=== PATIENT | female | born 1995 | race Caucasian/White ===

== ENCOUNTER 2017-04-17 07:18 | Inpatient (IN) | payer MEDICAID ==
[2017-05-23] MEDS ORDERED: OXYTOCIN/NORMAL SALINE 20 UNIT/1,000 ML RTUINJ IV PRN ×2 (07:45→14:02)
[2017-05-23] MEDS ORDERED: RINGERS SOLUTION,LACTATED 300 ML IV ONE (07:45)
[2017-05-23] MEDS: DINOPROSTONE 10 MG VAGINAL INSERT.SR PV PRN ×3 (08:18→14:47)
[2017-05-23 08:25] LABS: APPEARANCE,URINE CLOUDY; BILIRUBIN,URINE NEGATIVE (NEGATIVE); COLOR,URINE YELLOW; GLUCOSE, URINE NEGATIVE (NEGATIVE); KETONES,URINE NEGATIVE (NEGATIVE); LEUKOCYTE ESTERASE,URINE MODERATE (NEGATIVE); NITRITE,URINE NEGATIVE (NEGATIVE); PROTEIN,URINE NEGATIVE (NEGATIVE); URINE SPECIFIC GRAVITY 1.009; UROBILINOGEN,URINE NEGATIVE mg/dL (<2.0)
[2017-05-23 08:26] LABS: HEMATOCRIT 35.3 % (36.0-47.0); HEMOGLOBIN 11.3 g/dL (12.0-15.5); MEAN CORPUSCULAR HEMOGLOBIN 25.6 pg (27.0-33.4); MEAN CORPUSCULAR HGB CONC 32.1 g/dL (32.0-36.0); MEAN CORPUSCULAR VOLUME 80 fl (80-97); PLATELET COUNT 201 10^3/uL (150-450); RED BLOOD COUNT 4.42 10^6/uL (3.72-5.28); RED CELL DISTRIBUTION WIDTH 14.2 % (11.5-14.0)
[2017-05-23 08:35] LABS: ADD MANUAL MICROSCOPIC YES
[2017-05-23] MEDS ORDERED: LIDOCAINE 1% INJ-PF (10 MG/ML) 30 ML SDV ONE (08:35)
[2017-05-23] MEDS ORDERED: OXYTOCIN/NORMAL SALINE 20 UNIT/1,000 ML RTUINJ ONE (08:35)
[2017-05-23 08:36] LABS: BACTERIA,URINE TRACE /HPF
[2017-05-23 08:39] LABS: URINE AMPHETAMINES SCREEN NEGATIVE; URINE BARBITURATES SCREEN NEGATIVE; URINE BENZODIAZEPINES SCREEN NEGATIVE; URINE COCAINE SCREEN NEGATIVE; URINE MARIJUANA (THC) SCREEN NEGATIVE; URINE METHADONE SCREEN NEGATIVE; URINE PHENCYCLIDINE SCREEN NEGATIVE
[2017-05-23] MEDS: RINGERS SOLUTION,LACTATED 1,000 ML IV PRN ×2 (08:45→10:09)
[2017-05-23] MEDS ORDERED: FENTANYL CITRATE INJ/PF 100 MCG/2 ML AMPUL ONE (10:30)
[2017-05-23] MEDS ORDERED: PHENYLEPHRINE HCL INJ/PF 10 MG/1 ML SDV ONE (10:31)
[2017-05-23] MEDS ORDERED: FENTANYL/BUPIVACAINE/NS/PF 200 MCG/100 ML RTUINJ EPI ONE (10:31)
[2017-05-23] MEDS ORDERED: BUPIVACAINE HCL 0.25 % INJ/PF (2.5 MG/1 ML) 30 ML VIAL ONE (10:31)
[2017-05-23] MEDS ORDERED: EPHEDRINE SULFATE INJ 50 MG/1 ML AMPULE ONE (10:31)
[2017-05-23 10:51] LABS: CHLAM PCR NOT DETECTED (NOT DETECT); GON PCR NOT DETECTED (NOT DETECT)
[2017-05-23] MEDS ORDERED: MISOPROSTOL 0.2 MG TABLET ONE (12:39)
[2017-05-23] MEDS ORDERED: BENZOCAINE/MENTHOL AEROSOL SPRAY 56 ML TOP PRN (14:02)
[2017-05-23] MEDS ORDERED: DIPH/PERTUSS(ACELL)/TETANUS VAC/PF 0.5 ML SYR (>=10YO) IM PRN (14:02)
[2017-05-23] MEDS ORDERED: DIBUCAINE 1% OINTMENT 28 GM TP PRN (14:02)
[2017-05-23] MEDS ORDERED: ACETAMINOPHEN WITH CODEINE #3 TABLET PO PRN (14:02)
[2017-05-23] MEDS ORDERED: MEASLES,MUMPS&RUBELLA VACC/PF 0.5 ML VIAL SUBCUT PRN (14:02)
[2017-05-23] MEDS ORDERED: ZOLPIDEM TARTRATE 5 MG TABLET PO PRN (14:02)
--- NOTE | 2017-05-23 15:27 | Warning Signs in Babies ---
VOD Warning Signs Datetime Report Generated by [facility]: 05/23/2017 15:26 VOD#[id number] -Warning Signs in Babies: Viewed with Parent(s)/Family (05/23/2017 06:13:Nissa Sanders RN)
--- NOTE | 2017-05-23 16:22 | Admission Physical ---
Datetime Report Generated by CPN: 05/23/2017 16:22 CURRENT ADMISSION Chief Complaint: Scheduled Induction of Labor Indication for Induction: Post Dates Indication for Induction: Term, Intrauterine ; No Active Labor; Induction of Labor Admit Plan: Admit to Unit; Initiate Labor Induction Protocol ALLERGIES Medication Allergies: No Medication Allergies: No Known Allergies (05/23/2017) Latex: No Latex Allergies OBSTETRICAL HISTORY EDC: 05/17/2017 00:00 : 1 Para: 0 Term: 0 : 0 SAB: 0 IAB: 0 Ectopic: 0 Livin Cesareans: 0 VBACs: 0 Multiple Births: 0 Current Procedures: Ultrasound Obstetrical History Comments: G1 - current SEE RECORDS Alcohol: No Marijuana : No Cocaine: No Other Illicit Drugs: No Cigarettes: Former Smoker. [id number] MEDICAL HISTORY Kidney Disease: Yes Medical History Comments: UTI's as child INFECTIOUS HISTORY Chlamydia: Yes PHYSICAL EXAM General: Normal HEENT: Normal Neurologic: Normal Thyroid: Normal Heart: Normal Lungs: Normal Breast: Normal Back: Normal Abdomen: Normal Genitourinary Exam: Normal Extremities: Normal DTRs: Normal Pelvic Type: Adequate Vital Signs: Reviewed; Within Normal Limits VAGINAL EXAM Dilatation: 10 Effacement: 100 Station: 3 MEMBRANES Pooling: Negative Membranes: Ruptured Amniotic Fluid Color: Clear FETUS A EGA: 40.6 Monitoring: External US FHR- Baseline: 125 Variability: Moderate 6-25bpm Accelerations: 15X15 Decelerations: Variable FHR Category: Category II Estimated Weight (gm): 3700 Presentation: Vertex PLANS FOR LABOR AND DELIVERY Labor and Delivery: None Pain Management: Epidural Feeding Preference: Breast Benefit of Breast Feed Discussed: Yes Circumcision: Yes INFORMED CONSENT Signature: with User ID: [email or web address]
[2017-05-23] MEDS: DOCUSATE SODIUM 100 MG CAPSULE PO SCH (17:53)
[2017-05-23] MEDS: FERROUS SULFATE 325 MG TABLET PO SCH (17:53)
[2017-05-23] MEDS: ACETAMINOPHEN WITH CODEINE #3 TABLET PO PRN (18:35)
[2017-05-23] MEDS: IBUPROFEN 800 MG TABLET PO SCH (21:16)
[2017-05-24] MEDS: IBUPROFEN 800 MG TABLET PO SCH ×3 (05:28→22:00)
[2017-05-24 07:55] LABS: HEMATOCRIT 29.7 % (36.0-47.0); HEMOGLOBIN 9.8 g/dL (12.0-15.5); MEAN CORPUSCULAR HEMOGLOBIN 26.4 pg (27.0-33.4); MEAN CORPUSCULAR VOLUME 80 fl (80-97); PLATELET COUNT 172 10^3/uL (150-450); RED BLOOD COUNT 3.72 10^6/uL (3.72-5.28); RED CELL DISTRIBUTION WIDTH 14.3 % (11.5-14.0); WHITE BLOOD COUNT 14.5 10^3/uL (4.0-10.5)
[2017-05-24] MEDS: SENNOSIDES/DOCUSATE 8.6-50 MG 1 EACH TABLET PO SCH (10:33)
[2017-05-24] MEDS: PRENATAL VITAMIN W DHA CAPSULE PO SCH (10:34)
[2017-05-24] MEDS: DOCUSATE SODIUM 100 MG CAPSULE PO SCH ×2 (10:34→17:50)
[2017-05-24] MEDS: FERROUS SULFATE 325 MG TABLET PO SCH ×2 (10:34→17:50)
--- NOTE | 2017-05-24 10:39 | PDOC PROGRESS REPORT ---
Subjective-OB Subjective: Post Delivery Day: 21 year old. Denies any needs at this time ambulating well denies bowel movement continues betadine with tyrese bottle advised pt no straining with bm after 3rd degree repair pain well managed anticipate d/c in AM Physical Exam (OB) Vital Signs: Temp Pulse Resp BP Pulse Ox 97.5 F 79 18 132/75 H 100 05/24/17 08:02 05/24/17 08:02 05/24/17 08:02 05/24/17 08:02 05/24/17 08:02 Intake & Output 05/23/17 05/24/17 05/25/17 06:59 06:59 06:59 Weight 86.8 kg - PIH/Pre-Eclampsia DTR's: 2 + Clonus: Negative Headache: Absent Epigastric Pain: No Visual Changes: No - Lochia Lochia Amount: Small 10-25 ml Lochia Color: Rubra/Red - Abdomen Description: Tender, Soft Hernia Present: No Fundal Description: Firm, Midline Fundal Height: u/u - u/2 Objective-Diagnostic Laboratory: 05/24/17 07:33 05/24/17 07:33 WBC 14.5 H RBC 3.72 Hgb 9.8 L Hct 29.7 L MCV 80 MCH 26.4 L MCHC 33.0 RDW 14.3 H Plt Count 172
[2017-05-24] MEDS: ACETAMINOPHEN WITH CODEINE #3 TABLET PO PRN ×2 (16:26→20:52)
[2017-05-25] MEDS: ACETAMINOPHEN WITH CODEINE #3 TABLET PO PRN ×2 (03:26→09:36)
[2017-05-25] MEDS: IBUPROFEN 800 MG TABLET PO SCH ×2 (05:19→13:07)
[2017-05-25] MEDS: DOCUSATE SODIUM 100 MG CAPSULE PO SCH (09:36)
[2017-05-25] MEDS: SENNOSIDES/DOCUSATE 8.6-50 MG 1 EACH TABLET PO SCH (09:36)
[2017-05-25] MEDS: FERROUS SULFATE 325 MG TABLET PO SCH (09:36)
[2017-05-25] MEDS: PRENATAL VITAMIN W DHA CAPSULE PO SCH (09:36)
--- NOTE | 2017-05-25 10:26 | PDOC DISCHARGE SUMMARY ---
Final Diagnosis Discharge Date: 05/25/17 - Final Diagnosis (1) Vaginal delivery Is this a current diagnosis for this admission?: Yes Discharge Data - Discharge Medication Home Medications: Calcium Carbonate [Tums Chewable 500 mg Tab.chew] 500 mg PO PRN PRN 05/23/17 Prenat 115/Iron Fum/Folic/Dss [ 19 Tablet] 1 each PO DAILY 05/23/17 Procedures: None Intrapartum Procedure(s): Spontaneous Vaginal Delivery Complication(s): Laceration-Vaginal Laceration-Degree: 3rd - Diagnosis Test Laboratory: Temp Pulse Resp BP Pulse Ox 98.1 F 72 16 127/70 H 100 05/25/17 07:27 05/25/17 07:27 05/25/17 07:27 05/25/17 07:27 05/25/17 07:27 05/23/17 05/23/17 05/24/17 07:30 08:15 07:33 RBC 4.42 3.72 Hgb 11.3 L 9.8 L Hct 35.3 L 29.7 L Urine Opiates Screen NEGATIVE - Discharge information/Instructions Discharge Activity: Activity As Tolerated Discharge Diet: Regular Disposition: HOME, SELF-CARE Follow up with: [facility] in: 2 - increase fiber and fluid in diet sitz baths follow up in 2 weeks
[2017-05-25 10:36] VITALS: BP 130/67
--- NOTE | 2017-05-30 10:37 | Delivery Summary ---
Del Sum A-C Datetime Report Generated by CPN: 05/30/2017 10:36 DELIVERY PERSONNEL DELIVERY PERSONNEL: [id number] Delivery Doctor:: Hanane Ortega MD Labor and Delivery Nurse:: Nissa Sanders RNvideo game programmer Nurse:: NICK Hauser Va Underwriter/MANAGER WHOLESALE: Nemo Serrato, ST Additional Personnel: : C J Carlos MATERNAL INFORMATION Delivery Anesthesia: Epidural Medications After Delivery: Pitocin Bolus-Please Comment; Pitocin Drip 20 Units/1000ml NSS Estimated Blood Loss (ml): 200 Maternal Complications: None LABOR SUMMARY EDC: 05/17/2017 00:00 No. Babies in Womb: 1 Attempted: No Labor Anesthesia: Epidural LABOR INFORMATION Reason for Induction: Post Dates Onset of Labor: 05/23/2017 10:15 Complete Dilatation: 05/23/2017 12:36 Oxytocin: Induction Group B Beta Strep: negative Antibiotics # of Doses: 0 Steroids Given: None Reason Steroids Not Administered: Not Applicable MEMBRANES Membranes Rupture Method: Artificial Rupture of Membranes: 05/23/2017 13:04 Length of Rupture (hr): 0.58 Amniotic Fluid Color: Clear Amniotic Fluid Amount: Moderate Amniotic Fluid Odor: None STAGES OF LABOR Stage 1 hr: 2 Stage 1 min: 21 Stage 2 hr: 1 Stage 2 min: 3 Stage 3 hr: 0 Stage 3 min: 5 Total Time in Labor hr: 3 Total Time in Labor min: 29 VAGINAL DELIVERY Episiotomy: None Laceration #1: Perineal Laceration Extension #1: Third Degree, IIIa (Less than 50 percent ext anal sphincter thickness torn) Laceration Repair: Yes Laceration Repair Note: repaired in normal fashion with 2-0 chromic Sponge Count Correct: N/A Sharps Count Correct: N/A CSECTION DELIVERY Primary Indication: N/A Secondary Indication: N/A CSection Incidence: N/A Labor: N/A Elective: N/A CSection Incision: N/A BABY A INFORMATION Infant Delivery Date/Time: 05/23/2017 13:39 Method of Delivery: Vaginal Born in Route : No : N/A Forceps: N/A Vacuum Extraction: N/A Shoulder Dystocia : No PRESENTATION/POSITION BABY A Presentation: Cephalic Cephalic Presentation: Vertex Vertex Position: Right Occipital Anterior Breech Presentation: N/A PLACENTA INFORMATION BABY A Placenta Delivery Time : 05/23/2017 13:44 Placenta Method of Delivery: Spontaneous Placenta Status: Delivered SCORES BABY A Heart Rate 1 min: >100 bpm Resp Effort 1 min: Good Cry Reflex Irritability 1 min: Cough or Sneeze or Pulls Away Muscle Tone 1 min: Active Motion Color 1 min: Body [place], Extremities Blue Resuscitation Effort 1 min: Tactile Stimulation SCORE 1 MIN: 9 Heart Rate 5 min: >100 bpm Resp Effort 5 min: Good Cry Reflex Irritability 5 min: Cough or Sneeze or Pulls Away Muscle Tone 5 min: Active Motion Color 5 min: Body [place], Extremities Blue Resuscitation Effort 5 min: N/A SCORE 5 MIN: 9 Resuscitation Effort 10 min: N/A INFANT INFORMATION BABY A Gestational Age at Delivery: 40.6 Gestational Status: Full Term- 39- 40.6 Weeks Outcome : Liveborn Infant Condition : Stable Sex: Male IDENTIFICATION BABY A Verification Date/Time: 05/23/2017 13:47 ID Band Number: [id number] Mother's Name Verified: Yes RN Verifying Infant: CChamp Hauserck, RN Additional Verifying Personnel: Susan Hopson, RN WEIGHT/LENGTH BABY A Infant Birthweight (gm): 3470 Infant Weight (lb): 7 Weight (oz): 10 Infant Length (in): 20.00 Length (cm): 50.80 CORD INFORMATION BABY A No. Cord Vessels: 3 Nuchal Cord : N/A Cord Blood Taken: Yes-For Eval (Mom's Blood Type - or O+) Infant Suction: Mouth ASSESSMENT BABY A Infant Complications: None Physical Findings at Delivery: Within Normal Limits Respirations: Appears Normal Skin to Skin: Yes Charge Master Specialist/ALS Called : No Infant Care By: C Codington RN Transferred To: Remains with Mother BABY B INFORMATION : N/A SIGNATURES Signature: with User ID: [email or web address]
== END 2017-05-25 14:55 | disposition home or self-care (01) | DRG 794 ==
LOC: LR 05-23 07:20 → 2N 05-23 16:21
PROVIDERS: ADMIT Obstetrics & Gynecology; ATTEND Obstetrics & Gynecology
PROC: 10E0XZZ Delivery of Products of Conception, External Approach (ICD-10-PCS; principal; 2017-05-23)
PROC: 0DQR0ZZ Repair Anal Sphincter, Open Approach (ICD-10-PCS; 2017-05-23)
PROC: 4A1HXCZ Monitoring of Products of Conception, Cardiac Rate, External Approach (ICD-10-PCS; 2017-05-23)
DX: P08.21 Post-term newborn (principal); O70.21 Third degree perineal laceration during delivery, IIIa; Z3A.41 41 weeks gestation of pregnancy; Z37.0 Single live birth; Z87.891 Personal history of nicotine dependence
CPT/HCPCS: 36415; 80307; 81001; 85027; 86592; 86850; 86900; 86901; 87491; 87591; 94760; J2370; J2590; J3010; J3490

== ENCOUNTER 2018-08-03 17:15 | Emergency (ER) | payer MEDICAID, OTHER ==
--- NOTE | 2018-08-03 19:07 | RADIOLOGY REPORT (SQ) ---
EXAM DESCRIPTION: CHEST 2 VIEWS COMPLETED DATE/TIME: 08/03/2018 7:03 pm REASON FOR STUDY: cough, cp COMPARISON: None. EXAM PARAMETERS: NUMBER OF VIEWS: two views TECHNIQUE: Digital Frontal and Lateral radiographic views of the chest acquired. RADIATION DOSE: NA LIMITATIONS: none FINDINGS: LUNGS AND PLEURA: No opacities, masses or pneumothorax. No pleural effusion. MEDIASTINUM AND HILAR STRUCTURES: No masses or contour abnormalities. HEART AND VASCULAR STRUCTURES: Heart normal size. No evidence for failure. BONES: No acute findings. HARDWARE: None in the chest. OTHER: No other significant finding. IMPRESSION: NO ACUTE RADIOGRAPHIC FINDING IN THE CHEST. TECHNICAL DOCUMENTATION: JOB ID: [id number] [employer]- All Rights Reserved Reading location - IP/workstation name: [email or web address]
[2018-08-03 19:25] LABS: ABSOLUTE BASOPHILS # (AUTO) 0.1 10^3/uL (0.0-0.2); ABSOLUTE EOSINOPHILS # (AUTO) 0.2 10^3/uL (0.0-0.6); ABSOLUTE LYMPHOCYTES (AUTO) 2.1 10^3/uL (0.5-4.7); ABSOLUTE MONOCYTES (AUTO) 0.7 10^3/uL (0.1-1.4); ABSOLUTE NEUT (AUTO) 5.9 10^3/uL (1.7-8.2); EOSINOPHILS % (AUTO) 1.8 % (0-6); HEMATOCRIT 37.7 % (36.0-47.0); HEMOGLOBIN 12.9 g/dL (12.0-15.5); LYMPHOCYTES % (AUTO) 23.3 % (13-45); MEAN CORPUSCULAR HGB CONC 34.1 g/dL (32.0-36.0); MEAN CORPUSCULAR VOLUME 79 fl (80-97); MONOCYTES % (AUTO) 7.6 % (3-13); PLATELET COUNT 194 10^3/uL (150-450); RED BLOOD COUNT 4.76 10^6/uL (3.72-5.28); RED CELL DISTRIBUTION WIDTH 14.2 % (11.5-14.0); SEGMENTED NEUTROPHILS % (AUTO) 66.3 % (42-78); TOTAL CELLS COUNTED % (AUTO) 100 %; WHITE BLOOD COUNT 8.9 10^3/uL (4.0-10.5)
--- NOTE | 2018-08-03 19:47 | ER Document Report ---
ED General - General Chief Complaint: Cough Stated Complaint: CHEST PAIN, SHORTNESS OF BREATH, LEG NUMB Time Seen by Provider: 08/03/18 18:21 Notes: Patient is a 22-year-old female without chronic medical problems, does not take any form of any medications, presents with 1 week of nasal congestion, cough, worse at night as well as approximately 12 hours of right-sided chest wall pain. Patient describes the pain as being a stabbing, constant pain in the right central area of her chest worsened by breathing, coughing or movement. States t hat it started early this morning while she was sleeping and has been ongoing since that time. She has been taking loratadine without any improvement of her symptoms. She denies a history of chest wall pain in the past but states that she has had regular seasonal allergies. She has not had shortness of breath, hemoptysis, unilateral leg swelling, and denies any history of DVT or pulmonary embolus. No history of malignancy. She has not seen her primary care physician regarding today's concerns. TRAVEL OUTSIDE OF THE [place] IN LAST 30 DAYS: No - Related Data Allergies/Adverse Reactions: No Known Allergies Allergy (Verified 08/03/18 17:21) Past Medical History - General Information source: Patient - Social History Smoking Status: Never Smoker Frequency of alcohol use: None Drug Abuse: None Lives with: Spouse/Significant other Family History: Reviewed & Not Pertinent Patient has suicidal ideation: No Patient has homicidal ideation: No Renal/ Medical History: Denies: Hx Peritoneal Dialysis Review of Systems - Review of Systems Notes: Constitutional: Negative for fever. HENT: Negative for sore throat. Eyes: Negative for visual changes. Cardiovascular: Negative for palpitations Respiratory: Positive for cough Gastrointestinal: Negative for abdominal pain, vomiting or diarrhea. Genitourinary: Negative for dysuria. Musculoskeletal: Positive for chest wall pain Skin: Negative for rash. Neurological: Negative for headaches, weakness or numbness. 10 point ROS negative except as marked above and in HPI. Physical Exam - Vital signs Vitals: Temp Pulse Resp BP Pulse Ox 98.9 F 79 16 122/68 100 08/03/18 17:49 08/03/18 17:49 08/03/18 17:49 08/03/18 17:49 08/03/18 17:49 Interpretation: Normal Notes: PHYSICAL EXAMINATION: GENERAL: Well-appearing, well-nourished and in no acute distress. HEAD: Atraumatic, normocephalic. EYES: Pupils equal round and reactive to light, extraocular movements intact, sclera anicteric, conjunctiva are normal. ENT: nares patent, oropharynx clear without exudates. Moist mucous membranes. NECK: Normal range of motion, supple without lymphadenopathy LUNGS: Breath sounds clear to auscultation bilaterally and equal. No wheezes rales or rhonchi. HEART: Regular rate and rhythm without murmurs ABDOMEN: Soft, nontender, normoactive bowel sounds. No guarding, no rebound. No masses appreciated. EXTREMITIES: Normal range of motion, no pitting or edema. No cyanosis. NEUROLOGICAL: No focal neurological deficits. Moves all extremities spontaneously and on command. PSYCH: Normal mood, normal affect. SKIN: Warm, Dry, normal turgor, no rashes or lesions noted. Course - Re-evaluation Re-evalutation: 08/03/18 19:47 Presentation of chest pain in an otherwise well appearing patient. Low clinical suspicion for ACS given clinical history, exam, EKG without ST elevations or depressions, and negative initial troponin. HEART score less than or equal to 3. PE also seems unlikely given clinical history, absence of tachycardia or dyspnea. Patient is PERC criteria negative. CXR without evidence of pneumothorax or pneumonia. No widened mediastinum. Aortic dissection also seems unlikely given history, symmetric pulses, CXR, and vitals. Patient's pain is been present for greater than 12 hours and I do not believe serial cardiac markers are indicated based on the duration of her symptoms as well as the very low clinical probability of any cardiac etiology of her pain. The pain is reproducible on exam, worsened with coughing and movement. In regards the patient's cough, suspect allergic in origin. Have advised fluticasone and cetirizine. At this time will discharge with return precautions and follow-up recommendations. Verbal discharge instructions given a the bedside and opportunity for questions given. Medication warnings reviewed. Patient is in agreement with this plan and has verbalized understanding of return precautions and the need for primary care follow-up in the next 24-72 hours. - Vital Signs Vital signs: Temp Pulse Resp BP Pulse Ox 98.9 F 79 16 122/68 100 08/03/18 17:49 08/03/18 17:49 08/03/18 17:49 08/03/18 17:49 08/03/18 17:49 - Laboratory Result Diagrams: 08/03/18 19:15 08/03/18 19:15 Laboratory results interpreted by me: 08/03/18 19:15 MCV 79 L RDW 14.2 H - Diagnostic Test Radiology reviewed: Image reviewed, Reports reviewed Radiology results interpreted by me: 08/03/18 19:48 Chest x-ray: No acute infiltrate or pneumothorax - EKG Interpretation by Me Additional EKG results interpreted by me: 08/03/18 19:48 Sinus rhythm, rate 68. No ST elevations or depressions. QTC is 456. Discharge - Discharge Clinical Impression: Cough, Chest wall pain Allergic rhinitis Qualifiers: Allergic rhinitis trigger: unspecified Allergic rhinitis seasonality: seasonal Qualified Code(s): J30.2 - Other seasonal allergic rhinitis Condition: Good Disposition: HOME, SELF-CARE Additional Instructions: Your symptoms of nasal congestion and cough are likely allergic in origin. I recommend cetirizine 10 mg up to 4 times daily as needed for cough, nasal congestion or sore throat. You may also add Flonase per bottle instructions. These medications can be purchased directly over the counter. Your chest wall discomfort is likely secondary to coughing and is musculoskeletal in origin. Your chest x-ray, blood work including cardiac markers and EKG are all reassuring today. For the pain in your chest wall you may take ibuprofen 600 mg every 6 hours. You can also use topical lidocaine sold [id number] and direct heat to the chest area. Please follow-up with your primary care physician within the next 3-4 days. Please return to the emergency department immediately if you develop worsening of your chest pain, began coughing blood, become severely short of breath, develop a fever of greater than 100.4 F, pass out, or have any other symptoms that are worrisome to you.
[2018-08-03 20:00] LABS: ANION GAP 11 (5-19); BLOOD UREA NITROGEN 8 mg/dL (7-20); CALCIUM 8.8 mg/dL (8.4-10.2); CARBON DIOXIDE 27 mmol/L (22-30); CHLORIDE 103 mmol/L (98-107); GLUCOSE 105 mg/dL (75-110); POTASSIUM 3.3 mmol/L (3.6-5.0); SODIUM 140.8 mmol/L (137-145)
[2018-08-03 20:26] VITALS: BP 113/71
--- NOTE | 2018-08-04 00:13 | EKG REPORT ---
SEVERITY:- NORMAL ECG - SINUS RHYTHM : Confirmed by: Diane Pacheco 04-Aug-2018 00:13:06
== END 2018-08-03 20:26 | disposition home or self-care (01) ==
LOC: ER 17:15
DX: J30.2 Other seasonal allergic rhinitis (principal); R05 Cough; R07.9 Chest pain, unspecified; R06.02 Shortness of breath; R20.0 Anesthesia of skin; R07.89 Other chest pain
CPT/HCPCS: 36415; 71046; 80048; 84484; 85025; 93005; 93010; 99284

== ENCOUNTER 2020-04-03 15:30 | Emergency (ER) | payer SELFPAY ==
--- NOTE | 2020-04-03 16:51 | ER Document Report ---
ED Medical Screen (RME) - General Chief Complaint: Vaginal Bleeding Stated Complaint: VAGINAL BLEEDING Time Seen by Provider: 04/03/20 16:47 Mode of Arrival: Ambulatory Information source: Patient Notes: 24-year-old female presented to ED for vaginal bleeding since yesterday. She states she is . She has had 10-12 home test that were positive. Last menstrual period started on February 25. If she is to be 2 para 1. She states she smokes 5 cigarettes a day. She states she is not having any pain at this time. She is alert oriented respirations regular nonlabored speaking in full sentences. I have greeted and performed a rapid initial assessment of this patient. A comprehensive ED assessment and evaluation of the patient, analysis of test res ults and completion of medical decision making process will be conducted by an additional ED providers. TRAVEL OUTSIDE OF THE [place] IN LAST 30 DAYS: No - Related Data Allergies/Adverse Reactions: No Known Allergies Allergy (Verified 08/03/18 17:21) Past Medical History Renal/ Medical History: Denies: Hx Peritoneal Dialysis Physical Exam - Vital signs Vitals: Temp Pulse Resp BP Pulse Ox 98.5 F 64 19 122/73 100 04/03/20 16:52 04/03/20 16:52 04/03/20 16:52 04/03/20 16:52 04/03/20 16:52 Course - Vital Signs Vital signs: Temp Pulse Resp BP Pulse Ox 98.5 F 64 19 122/73 100 04/03/20 16:52 04/03/20 16:52 04/03/20 16:52 04/03/20 16:52 04/03/20 16:52
[2020-04-03 17:59] LABS: ABSOLUTE EOSINOPHILS # (AUTO) 0.2 10^3/uL (0.0-0.6); ABSOLUTE LYMPHOCYTES (AUTO) 2.1 10^3/uL (0.5-4.7); ABSOLUTE MONOCYTES (AUTO) 0.5 10^3/uL (0.1-1.4); ABSOLUTE NEUT (AUTO) 4.8 10^3/uL (1.7-8.2); BASOPHILS % (AUTO) 0.4 % (0-2); EOSINOPHILS % (AUTO) 3.1 % (0-6); HEMATOCRIT 39.6 % (36.0-47.0); HEMOGLOBIN 13.4 g/dL (12.0-15.5); LYMPHOCYTES % (AUTO) 27.6 % (13-45); MEAN CORPUSCULAR HGB CONC 33.8 g/dL (32.0-36.0); MEAN CORPUSCULAR VOLUME 83 fl (80-97); MONOCYTES % (AUTO) 6.4 % (3-13); PLATELET COUNT 176 10^3/uL (150-450); RED CELL DISTRIBUTION WIDTH 14.3 % (11.5-14.0); SEGMENTED NEUTROPHILS % (AUTO) 62.5 % (42-78); TOTAL CELLS COUNTED % (AUTO) 100 %; WHITE BLOOD COUNT 7.7 10^3/uL (4.0-10.5)
[2020-04-03 18:04] LABS: APPEARANCE,URINE CLEAR; BILIRUBIN,URINE NEGATIVE (NEGATIVE); COLOR,URINE YELLOW; GLUCOSE, URINE NEGATIVE (NEGATIVE); KETONES,URINE NEGATIVE (NEGATIVE); LEUKOCYTE ESTERASE,URINE NEGATIVE (NEGATIVE); NITRITE,URINE NEGATIVE (NEGATIVE); PROTEIN,URINE NEGATIVE (NEGATIVE); URINE SPECIFIC GRAVITY 1.015; UROBILINOGEN,URINE NEGATIVE mg/dL (<2.0)
[2020-04-03 18:21] LABS: ALBUMIN 4.7 g/dL (3.5-5.0); ALKALINE PHOSPHATASE 73 U/L (38-126); ANION GAP 10 (5-19); ASPARTATE AMINO TRANSFERASE 16 U/L (14-36); BILIRUBIN,DIRECT 0.1 mg/dL (0.0-0.4); BILIRUBIN,TOTAL 0.2 mg/dL (0.2-1.3); BLOOD UREA NITROGEN 12 mg/dL (7-20); CALCIUM 9.4 mg/dL (8.4-10.2); CARBON DIOXIDE 26 mmol/L (22-30); CHLORIDE 104 mmol/L (98-107); GLUCOSE 88 mg/dL (75-110); TOTAL PROTEIN 7.1 g/dL (6.3-8.2)
--- NOTE | 2020-04-03 18:30 | RADIOLOGY REPORT (SQ) ---
EXAM DESCRIPTION: U/S OB TRANSVAGINAL W/O DOP IMAGES COMPLETED DATE/TIME: 04/03/2020 6:19 pm REASON FOR STUDY: vaginal bleeding in COMPARISON: None. TECHNIQUE: Transvaginal static and realtime grayscale images acquired of the pelvis. Additional porfirio cted spectral and color Doppler images recorded. All images stored on PACs. bHCG: Not available. CLINICAL DATES: LMP 02/26/2020 5 weeks 2 days LIMITATIONS: None. FINDINGS: FETUS: No intrauterine gestation is seen at this time. UTERUS: No masses. No anomalies. Endometrium measures 5 mm. CERVICAL LENGTH: 1.3 cm. Closed. RIGHT ADNEXA: Normal ovary with normal vascular flow. 3.5 x 1.6 x 1.7 cm. No adnexal free fluid. No adnexal masses. LEFT ADNEXA: Ovary not seen. No adnexal free fluid. No adnexal masses. FREE FLUID: None. OTHER: No other significant finding. IMPRESSION: No intrauterine gestation is seen at this time. Follow-up as clinically indicated. TECHNICAL DOCUMENTATION: JOB ID: [id number] [employer]- All Rights Reserved rev-10/03 Reading location - IP/workstation name: [email or web address]
[2020-04-03 20:23] VITALS: BP 135/68
--- NOTE | 2020-04-03 21:24 | ER Document Report ---
ED GI/ - General Chief Complaint: Vaginal Bleeding Stated Complaint: VAGINAL BLEEDING Time Seen by Provider: 04/03/20 16:47 Mode of Arrival: Ambulatory Notes: Patient is a 24-year-old female comes emergency department for chief complaint of vaginal bleeding that started yesterday. Patient had at least 10+ home pregn taz test with different brands. Patient states her LMP started February 25. Patient is G1, P1 unless this test is positive. She denies current bleeding or current pain. She denies any current complaints. She denies past medical history otherwise. She smokes. TRAVEL OUTSIDE OF THE [place] IN LAST 30 DAYS: No - Related Data Allergies/Adverse Reactions: No Known Allergies Allergy (Verified 08/03/18 17:21) Past Medical History - General Information source: Patient Last Menstrual Period: 02/26/2020 - Social History Smoking Status: Current Every Day Smoker Smoking Education Provided: Yes - <3 min Drug Abuse: None Lives with: Family Family History: Reviewed & Not Pertinent Renal/ Medical History: Denies: Hx Peritoneal Dialysis Surgical Hx: Negative - Immunizations Immunizations up to date: Yes Hx Diphtheria, Pertussis, Tetanus Vaccination: Yes Review of Systems - Review of Systems Constitutional: No symptoms reported EENT: No symptoms reported Cardiovascular: No symptoms reported Respiratory: No symptoms reported Gastrointestinal: No symptoms reported Genitourinary: No symptoms reported Female Genitourinary: See HPI Musculoskeletal: No symptoms reported Skin: No symptoms reported Hematologic/Lymphatic: No symptoms reported Neurological/Psychological: No symptoms reported Physical Exam - Vital signs Vitals: Temp Pulse Resp BP Pulse Ox 98.5 F 64 19 122/73 100 04/03/20 16:52 04/03/20 16:52 04/03/20 16:52 04/03/20 16:52 04/03/20 16:52 - Notes Notes: GENERAL: Alert, interacts well. No acute distress. HEAD: Normocephalic, atraumatic. EYES: Pupils equal, round, and reactive to light. Extraocular movements intact. ENT: Oral mucosa moist, tongue midline. Oropharynx unremarkable. Airway patent. LUNGS: Clear to auscultation bilaterally, no wheezes, rales, or rhonchi. No respiratory distress. Non-tender chest wall. HEART: Regular rate and rhythm. No murmur ABDOMEN: Soft, non-tender. Non-distended. Bowel sounds present in all 4 quadrants. EXTREMITIES: Moves all 4 extremities spontaneously. No edema, normal radial and dorsalis pedis pulses bilaterally. No cyanosis. BACK: no cervical, thoracic, lumbar midline tenderness. No saddle anesthesia, normal distal neurovascular exam. Moves all extremities in full range of motion. NEUROLOGICAL: Alert and oriented x3. Normal speech. Cranial nerves II through XII grossly intact. Strength 5/5 in all extremities. PSYCH: Normal affect, normal mood. SKIN: Warm, dry, normal turgor. No rashes or lesions noted. Course - Re-evaluation Re-evalutation: Laboratory work-up completely unremarkable. hCG quantitative is actually negative. Physical exam unremarkable, vital signs unremarkable, patient is very well-appearing. Ultrasound from triage unremarkable. Patient surprised about her negative test. However she was not overly upset, she appeared to accept this without difficulty, she remained optimistic, she has had a child in the past. She states she already has [facility] follow-up, she has no additional complaints or concerns. Stable and well-appearing at time of discharge. - Vital Signs Vital signs: Temp Pulse Resp BP Pulse Ox 98.5 F 69 19 135/68 H 98 04/03/20 19:47 04/03/20 19:47 04/03/20 16:52 04/03/20 19:47 04/03/20 19:47 - Laboratory Result Diagrams: 04/03/20 17:35 04/03/20 17:35 Laboratory results interpreted by me: 04/03/20 04/03/20 17:35 17:35 RDW 14.3 H Urine Blood SMALL H Urine Ascorbic Acid 20 H Discharge - Discharge Clinical Impression: Vaginal bleeding Condition: Stable Disposition: HOME, SELF-CARE Additional Instructions: Your test is negative, your ultrasound is normal, your laboratory work-up does not show any concerning findings. Your blood type is O+. Follow-up with [facility] for additional evaluation and management. Return for any concerning symptoms including severe pain, fever, passing out, or any other concerning symptoms. Forms: Return to Work, Treatment of Relative/Child
== END 2020-04-03 21:36 | disposition home or self-care (01) ==
LOC: ER 15:30
DX: N93.8 Other specified abnormal uterine and vaginal bleeding (principal); F17.210 Nicotine dependence, cigarettes, uncomplicated; Z32.02 Encounter for pregnancy test, result negative
CPT/HCPCS: 36415; 76817; 80053; 81001; 84702; 85025; 86900; 86901; 99284

== ENCOUNTER → 2020-05-11 | Outpatient (CLI) | payer SELFPAY ==
--- NOTE | 2020-05-11 14:19 | RADIOLOGY REPORT (SQ) ---
EXAM DESCRIPTION: U/S [id number] TRNABD 1GES W/ODOP IMAGES COMPLETED DATE/TIME: 05/11/2020 1:58 pm REASON FOR STUDY: DATING US Z34.81 ENCOUNTER FOR SUPRVSN OF NORMAL , FIRST TRIM TECHNIQUE: Transabdominal static and realtime grayscale images acquired of the pelvis. Additional se lected spectral and color Doppler images recorded. All images stored on PACs. CLINICAL AGE: 10 weeks, 0 days bHCG: Not available. LIMITATIONS: None. FINDINGS: UTERUS: No masses. No anomalies. GESTATIONAL SAC: Small for dates. YOLK SAC: No. POLE: None present. RIGHT ADNEXA: Normal ovary with normal vascular flow. No adnexal free fluid. No adnexal masses. LEFT ADNEXA: Normal ovary with normal vascular flow. No adnexal free fluid. No adnexal masses. FREE FLUID: None. OTHER: No other significant finding. IMPRESSION: POSSIBLE EARLY INTRAUTERINE . GESTATIONAL SAC CONSISTENT WITH A 6 WEEK, 3 DAY GESTATION WHICH IS BEHIND CLINICAL DATES OF 10 WEEKS, 0 DAYS. BHCG LEVEL NOT AVAILABLE FOR CORRELATION WITH US FINDINGS. CONSIDER F/U BHCG AND/OR ULTRASOUND FOR VERIFICATION AND TO EXCLUDE ECTOPIC . Trimester of : First trimester - 0 to 13 weeks. TECHNICAL DOCUMENTATION: JOB ID: [id number] [employer]- All Rights Reserved COMPARISON: 04/03/2020 Reading location - IP/workstation name: [email or web address]
== END ==
LOC: RAD 13:34
PROVIDERS: ATTEND Midwife
DX: Z34.81 Encounter for supervision of other normal pregnancy, first trimester (principal); Z3A.08 8 weeks gestation of pregnancy
CPT/HCPCS: 76801